=== PATIENT | male | born 1990 | race Hispanic/Latino ===

== ENCOUNTER 2017-06-16 19:41 | Emergency (ER) | payer OTHER ==
[2017-06-16 20:16] VITALS: BP 133/82
[2017-06-16] MEDS ORDERED: XYLOCAINE 2% INFILTRATI ONE (21:32)
[2017-06-16] MEDS ORDERED: XYLOCAINE 2%/ EPI 1:200,000 INFILTRATI ONE (22:06)
[2017-06-16] MEDS ORDERED: TRIPLE ANTIBIOTIC TP ONE ×2 (22:17→22:18)
[2017-06-16] MEDS ORDERED: MOTRIN PO ONE (22:17)
--- NOTE | 2017-06-16 22:19 | Emergency Department Report ---
Upper Extremity - HPI Chief Complaint: Extremity Injury, Upper Stated Complaint: SCREW IN L HAND Time Seen by Provider: 06/16/17 22:17 Upper Extremity: Right Hand (screw in right hand) Symptoms: Yes Pain with Movement, No Deformity, No Limited Range of Movement, No Numbness, No Weakness, No Swelling, No Bruising/Ecchymosis, No Laceration or Abrasion Other History: 26-year-old male past medical history none presents with complaint of accidentally drilling a screw into his left hand. Patient has visible screw lodged between thumb and index finger in web space. Denies any other injuries. Patient states his last tetanus vaccine was approximately 4 years ago. ED Review of Systems ROS: Stated complaint: SCREW IN L HAND Other details as noted in HPI Constitutional: denies: chills, fever Eyes: denies: eye pain, eye discharge, vision change ENT: denies: ear pain, throat pain Respiratory: denies: cough, shortness of breath, wheezing Cardiovascular: denies: chest pain, palpitations Endocrine: no symptoms reported Gastrointestinal: denies: abdominal pain, nausea, diarrhea Genitourinary: denies: urgency, dysuria Musculoskeletal: denies: back pain, joint swelling, arthralgia Skin: denies: rash, lesions Neurological: denies: headache, weakness, paresthesias Psychiatric: denies: anxiety, depression Hematological/Lymphatic: denies: easy bleeding, easy bruising ED Past Medical Hx - Past Medical History Previous Medical History?: No - Surgical History Past Surgical History?: Yes Additional Surgical History: R. hand - Social History Smoking Status: Never Smoker - Medications Home Medications: Home Medications Medication Instructions Recorded Confirmed Last Taken Type Bacitracin Zinc Oint [Antibiotic 1 applicatio TP BID #1 tube 06/16/17 Unknown Rx Oint] Cephalexin [Keflex] 500 mg PO Q12HR #20 cap 06/16/17 Unknown Rx Ibuprofen [Motrin] 600 mg PO Q8H PRN #30 tablet 06/16/17 Unknown Rx Upper Extremity Exam - Exam General: Vital signs noted. No distress. Alert and acting appropriately. Head and Torso: No HEENT Abnormality, No Neck Tenderness, No Chest/Lungs Abnormality, No Abdominal Tenderness, No Back Tenderness Shoulder Exam: Yes Normal Range of Motion in Shoulder, No Shoulder Tenderness, No Clavicle Tenderness, No Shoulder Deformity, No AC Joint Tenderness Arm Exam: No Arm/Humerus Tenderness, No Arm Deformity Elbow: No Elbow Tenderness, No Normal Range of Motion in Elbow, No Elbow Deformity Forearm: No Forearm Tenderness, No Forearm Deformity, No Pain with Pronation, No Pain with Supination Wrist: Yes Normal ROM in Wrist, No Wrist Tenderness, No Wrist Deformity, No Snuffbox Tenderness, No Pain with Axial Thumb Compression Hand: Yes Hand Tenderness (pain near web scpace between thumb and index finger) , Yes Normal ROM in Digit(s) (range of motion all fingers including thumb at MCP DIP and PIP intact.), No Hand Deformity, No Digit Tenderness, No Digit(s) Deformity, No Tendon Dysfunction (range of motion right thumb including flexion and extension abduction and abduction completely intact and against resistance) CMS Exam: Yes Broken Skin (small puncture wound at site of screw), Yes Normal Distal Pulses (distal radial and ulnar pulses intact capillary refill less than one second all fingers), Yes Normal Capillary Refill, Yes Normal Distal Sensation Hand L/R Back: 1 - Screw lodged here ED Course Vital Signs 06/16/17 20:13 Temperature 98.2 F Pulse Rate 84 Respiratory 16 Rate Blood Pressure 133/82 O2 Sat by Pulse 100 Oximetry ED Medical Decision Making - Medical Decision Making A/P: Foreign body removal left hand, puncture wound left hand 1-after infiltration with lidocaine screw successfully removed intact, post- removal x-ray shows no foreign body 2-as this is a puncture wound there is no indication for closure 3-triple antibiotic ointment to puncture site, Keflex 500 twice a day 10 days. Tetanus vaccine is up-to-date as per patient 4- thumb spica splint to protect area. Gauze placed over the site. I advised patient to return to the ER if he experiences fever chills redness significant pus drainage or significant erythema developing over site of puncture wound. Critical care attestation.: If time is entered above; I have spent that time in minutes in the direct care of this critically ill patient, excluding procedure time. ED Disposition Clinical Impression: Superficial foreign body Puncture wound of left hand Qualifiers: Encounter type: initial encounter Foreign body presence: with foreign body Qualified Code(s): S61.442A - Puncture wound with foreign body of left hand, initial encounter Disposition: TO HOME OR SELFCARE Is pt being admited?: No Does the pt Need Aspirin: No Condition: Stable Instructions: Soft Tissue Foreign Body (ED), Puncture Wound (ED) Prescriptions: Bacitracin Zinc Oint [Antibiotic Oint] 1 applicatio TP BID #1 tube Cephalexin [Keflex] 500 mg PO Q12HR #20 cap Ibuprofen [Motrin] 600 mg PO Q8H PRN #30 tablet PRN Reason: Pain Forms: Work/School Release Form(ED) Time of Disposition: 22:43
--- NOTE | 2017-06-16 22:46 | XRay Report ---
FINAL REPORT PROCEDURE: XR HAND 3+V LT TECHNIQUE: LEFT hand radiographs, AP, lateral, and oblique views. CPT [id number] HISTORY: Pain evaluate foreign body, nail in the patient's hand. COMPARISON: No prior studies are available for comparison. FINDINGS: Fracture (s) and/or Dislocation(s): None . Alignment: Normal . Joint space(s): Normal . Soft tissues: Normal . Bone mineralization: Normal . Foreign bodies: Metallic densities seen in the soft tissues between the metacarpal of the thumb and the index finger. This appears to be a metallic screw. This measures approximately 16 millimeters in length and has a diameter of approximately 3.5 millimeters.. IMPRESSION: No acute bony abnormalities are identified. Metallic foreign body which appears to be a screw is visualized in the soft tissues between the metacarpal of the thumb and index finger..
--- NOTE | 2017-06-16 23:18 | XRay Report ---
FINAL REPORT PROCEDURE: AP and lateral view left hand TECHNIQUE: AP and lateral views the left hand were obtained. HISTORY: Foreign body removed. COMPARISON: Prior study earlier this evening. FINDINGS: Since the previous exam radiopaque foreign body, screw, has been removed from the soft tissues between thumb and index finger. No radiopaque foreign bodies are seen at the present time. Bony structures appear normal. No evidence of fracture or dislocation. IMPRESSION: Radiopaque foreign body, screw, removed since the prior study. No foreign bodies are identified on the current exam..
== END 2017-06-16 23:06 | disposition home or self-care (01) ==
LOC: ED 19:41
DX: S61.442A Puncture wound with foreign body of left hand, initial encounter (principal); W45.8XXA Other foreign body or object entering through skin, initial encounter; Y93.89 Activity, other specified; Y92.89 Other specified places as the place of occurrence of the external cause; Y99.8 Other external cause status; Z98.890 Other specified postprocedural states
CPT/HCPCS: A6250